=== PATIENT | female | born 1985 | race Hispanic/Latino ===

== ENCOUNTER 2017-01-28 09:49 | Inpatient (IN) ==
[2017-01-28] MEDS ORDERED: REGLAN PO ONE ×2 (09:59→12:45)
[2017-01-28] MEDS ORDERED: PEPCID PO ONE ×2 (09:59→12:45)
[2017-01-28] MEDS ORDERED: KEFZOL 1 GM/D5W 1 GM/50 ML IVPB IV PRN (09:59)
[2017-01-28] MEDS ORDERED: PEPCID IV ONE ×2 (10:15→12:45)
[2017-01-28] MEDS ORDERED: BICITRA PO ONE ×2 (10:15→12:45)
[2017-01-28] MEDS ORDERED: SODIUM CHLORIDE 0.9% INJ ONE ×2 (10:15→12:45)
[2017-01-28] MEDS ORDERED: REGLAN IV ONE ×2 (10:15→12:45)
[2017-01-28] MEDS: LR 1,000 ML IV SCH ×2 (10:40→12:54)
[2017-01-28 12:21] LABS: URINE SOURCE VOIDED
[2017-01-28 12:21] LABS: MANUAL DIFF NEEDED? NO
[2017-01-28 12:26] LABS: BASO% 0.2 % (0.0-0.8); EOS# 0.06 X1000 (0.0-0.7); EOS% 0.7 % (0.0-10.0); HEMATOCRIT 36.3 % (37.0-47.0); HEMOGLOBIN 12.1 g/dL (12.0-16.0); IMM GRAN# 0.07 X1000 (0.0-0.04); IMM GRAN% 0.9 % (0.0-0.5); LYMPH# 1.58 X1000 (1.2-3.4); LYMPH% 19.4 % (20.5-51.1); MCH 30.4 PG (27-31); MCHC 33.3 g/dL (33-37); MCV 91.2 FL (81-99); MONO# 0.54 X1000 (0.11-0.59); MONO% 6.6 % (1.7-9.3); MPV 10.9 FL (7.4-10.4); NEUT% 72.2 % (42.2-75.2); PLT 201 X1000 (130-400); RBC 3.98 XMIL (4.2-5.4)
[2017-01-28 13:00] LABS: BILIRUBIN URINE NEGATIVE (NEGATIVE); BLOOD URINE 1+ (NEGATIVE); CLARITY CLEAR (CLEAR); COLOR YELLOW; GLUCOSE URINE NEGATIVE (NEGATIVE); LEUKOCYTES URINE 2+ (NEGATIVE); NITRITE URINE NEGATIVE (NEGATIVE); PH URINE 6.5; PROTEIN URINE TRACE mg/dL (NEGATIVE); SP GRAVITY URINE 1.005; UROBILINOGEN URINE NORMAL
[2017-01-28] MEDS ORDERED: PITOCIN ONE (13:07)
[2017-01-28] MEDS ORDERED: NS 1,000 ML ONE (13:08)
[2017-01-28] MEDS ORDERED: EPHEDRINE ONE (13:08)
[2017-01-28] MEDS ORDERED: FENTANYL ONE (13:24)
[2017-01-28] MEDS ORDERED: DURAMORPH ONE (13:24)
[2017-01-28] MEDS ORDERED: XYLOCAINE-MPF 2% ONE (14:07)
--- NOTE | 2017-01-28 14:28 | HISTORY AND PHYSICAL ---
CHIEF COMPLAINT: Contractions. HISTORY OF PRESENT ILLNESS: This is a 31-year-old, G 2, P 1-0-0-1 with intrauterine at 38+ 1 weeks by a 38+ 1 week ultrasound, who presented this morning with complaints of contractions every 5-10 minutes. The patient noted no loss of fluid, no vaginal bleeding. She notes good movement. The patient is from [facility] and she has not received care this . She states that she has had no problems thus far in . On transabdominal ultrasound this morning, amniotic fluid index of 1.7 was noted. The patient notes no fevers, chills, nausea, vomiting, chest pain, shortness of breath. Again, good movement. No vaginal bleeding. No loss of fluid. OBSTETRICAL HISTORY: 1. G 1: Full-term section. 2. G 2: Current. 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 PAST MEDICAL HISTORY: Denies. PAST SURGICAL HISTORY: Significant for section x1. MEDICATIONS: None. ALLERGIES: No known drug allergies. SOCIAL HISTORY: Denies alcohol, tobacco or illicit drug use. FAMILY HISTORY: Noncontributory. REVIEW OF SYSTEMS: Negative. PHYSICAL EXAM: GENERAL: Well-developed well-nourished female in no acute distress. HEENT: Pupils equal, round, react to light. Extraocular muscles intact. CHEST: Clear to auscultation bilaterally. CV: Regular rate and rhythm. No murmurs, rubs, gallops. ABDOMEN: Soft, nontender, gravid. Estimated weight by 38+ 1 week ultrasound at 7 pounds 15 ounces. EXTREMITIES: No clubbing, cyanosis or edema. SKIN: No focal lesions. NEURO: No focal deficits. ASSESSMENT AND PLAN: 1. Intrauterine , around 38+ 1 weeks. 2. Oligohydramnios. 3. No care. 4. History of section times one. PLAN: We will plan for repeat section. The risks and benefits, including risks of bleeding, infection, injury to bowel and bladder were discussed. The patient states that she agrees with the above stated risks and would like to proceed forward. cc: Benjamin Garcia MD
[2017-01-28] MEDS ORDERED: HYDROXYZINE IM PRN (14:53)
[2017-01-28] MEDS ORDERED: PHENERGAN IM PRN (14:53)
[2017-01-28] MEDS ORDERED: HYDROXYZINE PO PRN (14:53)
[2017-01-28] MEDS ORDERED: AMBIEN PO PRN (14:53)
[2017-01-28] MEDS ORDERED: PITOCIN 20 UNITS/LR 20 UNITS/1,000 ML IV.SOLN IV ONE (14:53)
[2017-01-28] MEDS ORDERED: CYTOTEC PO PRN (14:53)
[2017-01-28] MEDS ORDERED: M-M-R II VACCINE SUBQ ONE (14:53)
[2017-01-28] MEDS ORDERED: BOOSTRIX VACCINE IM ONE (14:53)
[2017-01-28] MEDS ORDERED: MYLICON PO PRN (14:53)
[2017-01-28] MEDS ORDERED: PITOCIN IM PRN (14:53)
[2017-01-28] MEDS ORDERED: PERCOCET-5 PO PRN (14:53)
[2017-01-28] MEDS ORDERED: DULCOLAX PR PRN (14:53)
[2017-01-28] MEDS ORDERED: PITOCIN 10 UNITS/LR 10 UNIT/1,000 ML IV.SOLN IV SCH (15:00)
[2017-01-28] MEDS ORDERED: BENADRYL IV PRN (15:11)
[2017-01-28] MEDS ORDERED: NARCAN INJ PRN (15:11)
[2017-01-28] MEDS ORDERED: ZOFRAN ODT PO PRN (15:11)
[2017-01-28] MEDS ORDERED: ZOFRAN IV PRN ×3 (15:11→15:15)
[2017-01-28] MEDS ORDERED: NORCO-5 PO PRN (15:12)
[2017-01-28] MEDS ORDERED: NORCO-10 PO PRN (15:13)
[2017-01-28] MEDS ORDERED: DILAUDID IV PRN (15:14)
[2017-01-28] MEDS: TORADOL IV SCH ×2 (15:29→20:14)
--- NOTE | 2017-01-28 16:35 | OPERATIVE NOTE ---
PROCEDURE DATE: 01/28/2017 PREOPERATIVE DIAGNOSES: 1. Intrauterine at 38+ 1 weeks. 2. Oligohydramnios. 3. No care. 4. History of section x1. POSTOPERATIVE DIAGNOSES: 1. Intrauterine at 38+ 1 weeks. 2. Oligohydramnios. 3. No care. 4. History of section x1. PROCEDURE: Repeat low transverse section. SURGEON: Benjamin Garcia MD. ANESTHESIA: Sethi. FINDINGS: Normal uterus, ovaries, and bilateral fallopian tubes. COMPLICATIONS: None apparent. ESTIMATED BLOOD LOSS: 600 mL. SPECIMENS REMOVED: Placenta, cord blood. OPERATIVE COURSE: After the patient identified and consents reviewed, spinal anesthesia was administered without complications. Patient was placed in dorsal supine position with a leftward tilt. Abdomen was prepped and draped in normal sterile fashion. A Pfannenstiel skin incision was made and carried through to the underlying layer of fascia. This was extended laterally with Loza scissors. The superior portion of the fascial incision was grasped with Rema clamps, elevated, and the underlying rectus muscles were dissected off with Loza scissors. Inferior portion performed in a similar manner. The rectus muscles were then identified and in the midline. Peritoneum was identified and entered bluntly. Bladder blade was then inserted. Low transverse hysterotomy was made. Membranes were ruptured. Thin meconium fluid noted. found to be in a cephalic presentation. Infant delivered atraumatically. Nose and mouth were bulb suctioned. Cord was clamped and cut. handed off to waiting nursing staff. The placenta was then manually extracted. The uterus was exteriorized and cleaned of all clots and debris. The hysterotomy was repaired with 0 chromic in a running fashion. A 2nd [id number] suture was needed to achieve adequate hemostasis at the lateral right hysterotomy site. The uterus was then returned to the intraperitoneal space where again adequate hemostasis was noted. The peritoneum was then reapproximated using 0 chromic in a running fashion. The fascia was closed with 0 Vicryl in a running fashion. Subcutaneous tissue was closed with plain gut suture. The skin was closed with 4-0 Biosyn as well as Dermabond. Patient tolerated the procedure well. She has taken to the recovery room afterwards in stable condition. cc: Benjamin Garcia MD
[2017-01-28] MEDS ORDERED: PITOCIN 20 UNITS/LR 20 UNITS/1,000 ML IV.SOLN ONE (17:34)
[2017-01-28] MEDS: MYLICON PO SCH ×2 (18:15→20:13)
[2017-01-28] MEDS: PERICOLACE PO SCH (20:13)
[2017-01-29] MEDS: TORADOL IV SCH ×3 (02:50→15:17)
[2017-01-29 05:56] LABS: HEMATOCRIT 30.7 % (37.0-47.0); MCH 29.8 PG (27-31); MCHC 32.6 g/dL (33-37); MCV 91.4 FL (81-99); MPV 10.7 FL (7.4-10.4); RBC 3.36 XMIL (4.2-5.4)
[2017-01-29] MEDS: MYLICON PO SCH ×4 (07:42→20:31)
--- NOTE | 2017-01-29 10:26 | PROGRESS NOTE ---
DATE: 01/29/2017 SUBJECTIVE: She is postoperative day 1 from repeat delivery. She communicates no complaints. OBJECTIVE: Her vital signs are stable. She is afebrile. Physical examination within normal limits. Hemoglobin 10. ASSESSMENT AND PLAN: Expect routine postoperative care. cc: MD Benjamin Mcmillan MD
[2017-01-29] MEDS: PERCOCET-10 PO PRN ×4 (12:22→23:52)
[2017-01-29] MEDS ORDERED: LR 1,000 ML IV SCH (14:53)
[2017-01-29] MEDS: PERICOLACE PO SCH (20:31)
[2017-01-30] MEDS: MYLICON PO SCH (07:06)
[2017-01-30] MEDS: PERCOCET-10 PO PRN (07:06)
--- NOTE | 2017-01-30 17:25 | DISCHARGE SUMMARY ---
ADMISSION DATE: 01/28/2017 DISCHARGE DATE: 01/30/2017 ADMITTING DIAGNOSES: 1. Intrauterine at 38 weeks. 2. Oligohydramnios. 3. History of prior section. DISCHARGE DIAGNOSES: 1. Intrauterine at 38 weeks. 2. Oligohydramnios. 3. History of prior section. 4. Status post repeat section. HISTORY OF PRESENT ILLNESS: Patient is a 31-year-old, G2, P1, with intrauterine at 38 weeks who presented with complaints of contractions. Patient with no care. During evaluation amniotic fluid noted to be 1.7, so the decision was made to proceed to the operating room for repeat section. Please see full operative report for details. HOSPITAL COURSE: Postoperatively, patient was transferred to the floor for routine postop care. On postop day #1, Lee catheter was discontinued and patient demonstrated the ability to void. Hematocrit returned 30.7, and on postop day #2 the patient was tolerating a regular diet, ambulating without difficulty and was felt to be stable. DISCHARGE DISPOSITION: The patient is discharged home. PRIMARY PROCEDURE: Repeat section. DISCHARGE INSTRUCTIONS: Patient to follow up in 1 week for routine postop check. cc: MD Benjamin Park MD
== END 2017-01-30 16:45 | disposition home or self-care (01) ==
LOC: P.NUR 09:49 → P.LD 09:57 → P.WC 16:21
PROVIDERS: ADMIT Obstetrics & Gynecology; ATTEND Obstetrics & Gynecology